=== PATIENT | female | born 1970 | race African-American/Black ===

== ENCOUNTER 2020-09-30 09:52 | Emergency (ER) | payer MEDICAID ==
[~2020-09-30] VITALS: Ht 167.6 cm; Wt 133.1 kg
[2020-09-30] MEDS ORDERED: LABETALOL 5MG/ML SYR 20 MG/4 ML SYRINGE IV PRN (10:15)
[2020-09-30] MEDS ORDERED: NICARDIPINE 40MG/200ML PREMIX 200 ML IV ONE (10:15)
[2020-09-30] MEDS ORDERED: VECURONIUM BROMIDE 10 MG/VIAL IV ONE (10:15)
[2020-09-30] MEDS ORDERED: ETOMIDATE 2MG/ML 10ML VIAL IV ONE (10:15)
[2020-09-30] MEDS ORDERED: PROPOFOL 10MG/ML 100ML 100 ML IV ONE (10:15)
[2020-09-30 10:35] LABS: EOSINOPHILS % 2.1 % (0.0-5.0); HEMATOCRIT. 43.8 % (36.0-48.0); HEMOGLOBIN. 14.4 g/dL (12.0-16.0); LYMPHOCYTES % 49.7 % (20.0-50.0); MEAN CORPUSCULAR HEMOGLOBIN 27.7 pg (28.0-32.0); MEAN CORPUSCULAR VOLUME 84.1 fL (81.0-99.0); MEAN PLATELET VOLUME 8.2 fl (7.4-10.4); MONOCYTES % 4.9 % (2.0-8.0); NEUTROPHILS % 42.3 % (40.0-76.0); PLATELET 240 x1000/uL (130-400); RED BLOOD CELL COUNT 5.21 mill/uL (4.2-5.4); RED CELL DISTRIBUTION WIDTH 14.8 % (11.6-14.6)
[2020-09-30 10:45] LABS: CHLORIDE 110 mEq/L (98-107); PROTHROMBIN TIME 10.3 sec (9.6-11.0)
[2020-09-30 10:49] LABS: ETHANOL BLOOD < 10 mg/dL
[2020-09-30 10:51] LABS: HCG SCREEN NEGATIVE
[2020-09-30 10:52] LABS: LDL CHOLESTEROL 154 mg/dL (5-100)
[2020-09-30] MEDS ORDERED: LEVETIRACETAM 1000MG PREMIX 100 ML IV ONE (11:00)
[2020-09-30] MEDS ORDERED: MANNITOL 20% 62.5 ML IV ONE (11:00)
[2020-09-30] MEDS ORDERED: MANNITOL 12.5G (25%) VIAL 50ML IV ONE (11:00)
[2020-09-30] MEDS ORDERED: DEXAMETHASONE 10 MG/ML VIAL IV ONE (11:15)
[2020-09-30 11:29] LABS: CLARITY URINE CLEAR (CLEAR); COLOR URINE YELLOW (YELLOW); KETONES URINE NEGATIVE (NEGATIVE); LEUKOCYTE ESTERASE URINE NEGATIVE (NEGATIVE); NITRITE URINE NEGATIVE (NEGATIVE); OCCULT BLOOD URINE 3+ (NEGATIVE); PROTEIN URINE 3+ (NEGATIVE); SPECIFIC GRAVITY URINE 1.027 (1.005-1.030); UROBILINOGEN URINE 0.2 E.U./dL (0.2-1.0)
[2020-09-30 11:55] LABS: BG BASE EXCESS -1.6 mmol/L (-2.0-2.0); BG CARBOXYHEMOGLOBIN 1.7 % (0.5-1.5); BG DEOXYHEMOGLOBIN 2.1 % (0.0-5.0); BG FRACTION INSPIRED OXYGEN 50; BG METHEMOGLOBIN 0.3 % (0.0-1.5); BG OXYGEN SATURATION 97.9 % (92.0-98.5); BG OXYHEMOGLOBIN 95.9 % (94.0-97.0); BG PCO2 34.2 mmHg (35.0-45.0); BG PH 7.426 (7.350-7.450); BG PO2 101.6 mmHg (75.0-100.0); BG SAMPLE SITE RIGHT RADIAL; BG TOTAL HEMOGLOBIN 16.2 g/dL (12.0-18.0); BG VENT MODE VENT - AC
[2020-09-30] MEDS ORDERED: ESMOLOL 2500MG PREMIX 250 ML IV ONE ×2 (12:00→12:15)
[2020-09-30 12:01] LABS: *BARBITURATES SCREEN URINE NEGATIVE (NEGATIVE); *BENZODIAZEPINES SCREEN URINE NEGATIVE (NEGATIVE)
[2020-09-30 12:02] LABS: *AMPHETAMINES SCREEN URINE NEGATIVE (NEGATIVE); *COCAINE SCREEN URINE NEGATIVE (NEGATIVE); CANNABINOID URINE SCREEN NEGATIVE (NEGATIVE); METHADONE URINE SCREEN NEGATIVE (NEGATIVE); OPIATES URINE SCREEN NEGATIVE (NEGATIVE); PHENCYCLIDINE URINE SCREEN NEGATIVE (NEGATIVE)
[2020-09-30 12:31] VITALS: BP 220/130
[2020-09-30] MEDS ORDERED: SODIUM CHLORIDE 0.9% 10ML VIAL ONE (15:00)
== END 2020-09-30 12:45 | disposition short-term general hospital (02) ==
LOC: ER 10:09 → EDBEDREQ 10:17 → ER 12:45 → CANBEDREQ 15:59
DX: R41.82 Altered mental status, unspecified (principal); I62.9 Nontraumatic intracranial hemorrhage, unspecified; E11.9 Type 2 diabetes mellitus without complications; I10 Essential (primary) hypertension
CPT/HCPCS: 31500; 36415; 36600; 70450; 70496; 71045; 80053; 80305; 80320; 81003; 82375; 82805; 82962; 83605; 83721; 83880; 84484; 84703; 85025; 85610; 93005; 96365; 96375; 99285; J1100; J1953; J2704; J3490; Z7610; 94002; J2150; G0480